=== PATIENT | female | born 1945 | race Two or more races ===

== ENCOUNTER 2016-10-09 13:43 | Emergency (ER) | payer OTHER ==
[~2016-10-09] VITALS: Ht 152.4 cm; Wt 81.6 kg
[~2016-10-09 13:43] MED LIST: AMLO10TA2 PO; GLYB2.5T2 PO; HYDR25TA9 PO; LOSA100T6 PO; METF500T4 PO
[2016-10-09 13:56] VITALS: BP 136/63
--- NOTE | 2016-10-09 14:34 | RAD ---
Left foot, 3 views, 10/09/2016: History: Injury, pain The bony structures are demineralized. There is a fracture of the distal shaft of the fifth metatarsal. There is only slight angulation at the fracture site without significant displacement. No other fracture or dislocation is identified. Moderate degenerative changes are present at the midfoot level. IMPRESSION: Acute nondisplaced fracture of the distal fifth metatarsal. Left ankle, 3 views, 10/09/2016: There is a tiny cortical fracture at the tip of the lateral malleolus of indeterminate age. No other fracture or dislocation is identified. There is moderate diffuse soft tissue swelling about the ankle. IMPRESSION: Tiny cortical fracture at the tip of the lateral malleolus.
[2016-10-09] MEDS ORDERED: ACET-704 PO (14:46)
--- NOTE | 2016-10-09 14:47 | PHYS DOC ---
Past Medical History Past Medical History: Diabetes-Type II, Hypertension Past Surgical History: Hysterectomy Alcohol Use: None Drug Use: None Adult General Chief Complaint Chief Complaint: FOOT INJURY PAIN HPI HPI Patient is a 71 year old female with history of hypertension and high cholesterol who presents today complaining of mild sharp left lateral foot and left lateral ankle pain that began 4 days ago after she stepped on a rock and her foot twisted laterally. Patient states her pain is worse on weight-bearing to the left lower extremity. Review of Systems Review of Systems Constitutional: Denies fever or chills [] Musculoskeletal: left lateral foot and left lateral ankle pain Integument: Denies rash or skin lesions [] Neurologic: Denies headache, focal weakness or sensory changes [] Endocrine: Denies polyuria or polydipsia [] Allergies Allergies Allergies Coded Allergies Type Severity Reaction Last Updated Verified No Known Drug Allergies 01/26/15 No Physical Exam Physical Exam Constitutional: Well developed, well nourished, no acute distress, non-toxic appearance. [] Skin: Warm, dry, no erythema, no rash. [] Back: No tenderness, no CVA tenderness. [] Extremities: Left foot and left ankle with no obvious deformity. Mild amount of soft tissue swelling noted on the left foot lateral aspect and left lateral ankle. Tenderness on palpation of the left lateral ankle as well as along the fifth metatarsal of the left foot. Full range of motion to the left ankle. Limited range of motion to the left foot due to pain. +2 left pedal pulse. Cap refill less than 2 seconds the left toes. Sensation intact to the left lower extremity. Neurologic: Alert and oriented X 3, normal motor function, normal sensory function, no focal deficits noted. [] Psychologic: Affect normal, judgement normal, mood normal. [] Current Patient Data Vital Signs Vital Signs Date Time Temp Pulse Resp B/P (MAP) Pulse Ox O2 Delivery O2 Flow Rate FiO2 10/09/16 13:56 98.0 85 18 98 Room Air 98.0 EKG EKG [] Radiology/Procedures Radiology/Procedures []PROCEDURE: ANKLE LEFT 3V; FOOT LEFT 3V Left foot, 3 views, 10/09/2016: History: Injury, pain The bony structures are demineralized. There is a fracture of the distal shaft of the fifth metatarsal. There is only slight angulation at the fracture site without significant displacement. No other fracture or dislocation is identified. Moderate degenerative changes are present at the midfoot level. IMPRESSION: Acute nondisplaced fracture of the distal fifth metatarsal. Left ankle, 3 views, 10/09/2016: There is a tiny cortical fracture at the tip of the lateral malleolus of indeterminate age. No other fracture or dislocation is identified. There is moderate diffuse soft tissue swelling about the ankle. IMPRESSION: Tiny cortical fracture at the tip of the lateral malleolus. DICTATED and SIGNED BY: ADELA MCDANIEL MD DATE: 10/09/16 1426 CC: GUZMAN GUNDERSON APRN; NON,STAFF; CLAUDIA PENA MD ~ Course & Med Decision Making Course & Med Decision Making Pertinent Labs and Imaging studies reviewed. (See chart for details) Patient is in the ED with complaints of left foot and left ankle pain after stepping on a rock and twisting her foot. Left foot x-rays three views interpreted by radiologist were noted for a nondisplaced fracture of the fifth metatarsal, left ankle x-rays three views interpreted by radiologist were noted for tiny cortical fracture of the tip of the lateral malleolus. Patient was placed in a posterior leg splint by the dialysis patient care technician, neurovascular exam done by me is normal, discharged with instructions to contact the orthopedic doctor today and set up a follow-up appointment. Discharged with Tylenol 3 as needed for pain. Dragon Disclaimer Dragon Disclaimer This electronic medical record was generated, in whole or in part, using a voice recognition dictation system. Departure Departure Impression: Primary Impression: Metatarsal stress fracture of left foot Additional Impression: Fx lateral malleolus-closed Disposition: 01 HOME, SELF-CARE Condition: STABLE Referrals: CLAUDIA PENA MD (PCP) ULYSSES REDDY MD Call his office today or tomorrow and follow-up Patient Instructions: Ankle Fracture with Rehab-SportsMed, Foot Fracture-Brief Additional Instructions: You were seen for left foot and left ankle fractures. Contact the provided orthopedic doctor today or tomorrow and set up a follow-up appointment. Ice and elevate the extremity. Take the prescribed pain medicine as needed. Do not drive or operate machinery on pain medicines provided. Scripts Acetaminophen With Codeine (TYLENOL WITH CODEINE #3 TABLET) 1 Each Tablet 1 TAB PO PRN Q6HRS Y for PAIN, #30 TAB Prov: GUZMAN GUNDERSON APRN 10/09/16 Problem Qualifiers Primary Impression: Metatarsal stress fracture of left foot Encounter type: initial encounter Qualified Codes: M84.375A - Stress fracture, left foot, initial encounter for fracture Additional Impression: Fx lateral malleolus-closed Encounter type: initial encounter Fracture alignment: nondisplaced Laterality: left Qualified Codes: S82.65XA - Nondisplaced fracture of lateral malleolus of left fibula, initial encounter for closed fracture GUZMAN GUNDERSON MACHINE TECH Oct 09, 2016 14:47
== END 2016-10-09 15:14 | disposition home or self-care (01) ==
LOC: ER 13:43
DX: S82.65XA Nondisplaced fracture of lateral malleolus of left fibula, initial encounter for closed fracture (principal); E11.9 Type 2 diabetes mellitus without complications; I10 Essential (primary) hypertension; Z90.710 Acquired absence of both cervix and uterus; W22.8XXA Striking against or struck by other objects, initial encounter; Y93.89 Activity, other specified; Y99.8 Other external cause status; Y92.89 Other specified places as the place of occurrence of the external cause
CPT/HCPCS: 29515; 73610; 73630; 99284-25